=== PATIENT | female | born 2005 | race Caucasian/White ===

== ENCOUNTER 2024-03-17 06:15 | Day surgery (SDC) | payer OTHER, SELFPAY ==
[2024-03-01 12:47] VITALS: BMI 19.0
[2024-03-01 15:34] LABS: HCG, Urine Qualitative Screen Negative
[2024-03-01 15:43] LABS: Hematocrit 42.1 % (37.0-47.0); Hemoglobin 14.2 g/dL (12.0-16.0); Mean Corp Hgb Conc. 33.7 g/dL (33.0-37.0); Mean Corpuscular Hgb 29.9 pg (27.0-31.0); Mean Corpuscular Volume 88.6 fL (81.0-99.0); Mean Platelet Volume 10.3 fL (7.4-10.4); Platelet Count 291 10^3/uL (130-400); Red Blood Cell Count 4.75 10^6/uL (4.20-5.40); Red Cell Dist. Width 12.1 % (11.5-14.5); White Blood Cell Count 6.1 10^3/uL (4.8-10.8)
[2024-03-17] VITALS (7 sets, daily range): BP systolic 100–124; BP diastolic 52–75; BMI 19.0
[2024-03-17] MEDS: NORMOSOL-R/PLASMALYTE-A 1000 IV (06:47)
[2024-03-17] MEDS: TYLENOL 1000 MG PO (06:50)
[2024-03-17] MEDS: TRANSDERM-SCOP 1 PATCH TRANSDERM (07:42)
== END 2024-03-17 11:00 | disposition home or self-care (01) ==
LOC: SDS 06:15
PROVIDERS: ATTENDING PHYSICIAN Otolaryngology; FAMILY PHYSICIAN Physician Assistant Medical
DX: J34.2 Deviated nasal septum (principal); J34.3 Hypertrophy of nasal turbinates
CPT/HCPCS: 30520; 30140; 36415; 81025; 85027

== ENCOUNTER 2024-06-08 22:47 | Emergency (ER) | payer OTHER, SELFPAY ==
[2024-06-08 22:49] VITALS: BP 120/78
--- NOTE | 2024-06-08 23:08 | ED.GENMED ---
History of Present Illness
General
Chief Complaint: Eye Problems
Source: patient
Exam Limitations: none
Time Seen by Provider: 06/08/24 23:01
History of Present Illness
History of Present Illness:
Small splash of bleach cleaning bleach to the right eye. Occurred around 10 PM. Mild flushing at home. Complaining of irritation. No visual issues.
Review of Systems
Review of Systems
All Other Systems: Not applicable
Phy Exam
Physical Exam
Physical Exam:
General: Nontoxic appearing in no distress
Skin: Warm and dry, no rash
Neuro: Alert, nontoxic, grossly nonfocal
Psychiatric: Good eye contact and appropriate
Eye: Mild conjunctival injection of the right eye. Cornea clear. Discharge. No drainage. Facial area within normal limits
Course
Vital Signs
Initial and Last Documented VS:
Initial Vital Signs
Temp Pulse Resp BP Pulse Ox
98 F 76 16 120/78 100
06/08/24 22:49 06/08/24 22:49 06/08/24 22:49 06/08/24 22:49 06/08/24 22:49
Last Documented Vital Signs
Temp Pulse Resp BP Pulse Ox
98 F 76 16 120/78 100
06/08/24 22:49 06/08/24 22:49 06/08/24 22:49 06/08/24 22:49 06/08/24 22:49
*Critical Care Note
Total Time (30-74mins, 75-104mins- exclusive of procedures): Not Applicable
Update Note
Update Note:
Fluorescein negative. Tetracaine flushed well. Chemical conjunctivitis. Symptomatic treatment and follow-up as needed
ED Attending Note
-
Portions of this chart may have been created with voice recognition software.� Occasional wrong word or��sound alike� substitutions may have occurred due to the inherent limitations of voice recognition software.
Discharge Plan
Departure
Patient Disposition: Home (Routine Discharge)
Date of Disposition: 06/08/24
Time of Disposition: 23:27
Patient with high blood pressure during this ER visit?: No
Discharge Problem:
Bleach exposure right eye
Instructions: Chemical Eye Injury ED
Prescriptions:
No Action
No Current Medications
0
Referrals:
Julian Summers MD [Family Provider] -
Peyton Foster MD [Active] - Follow up in 2-3 days
Activity Restrictions/Additional Instructions:
The eye irritation should resolve over the next 24 to 36 hours
Get rechecked or call ophthalmology with any persistent irritation, any visual changes, hazy vision, unusual drainage, eye pain etc.
Interventions
Interventions:
*Risk Screen - Suicide Last Done: 06/08/24 22:49
*Neglect/Abuse Screening Last Done: 06/08/24 22:49
Discharge Date and Time
Print Language: BARBADIAN
== END 2024-06-08 23:36 | disposition home or self-care (01) ==
LOC: EMR 22:47
PROVIDERS: EMERGENCY PHYSICIAN Emergency Medicine; FAMILY PHYSICIAN Family Medicine
DX: T54.91XA Toxic effect of unspecified corrosive substance, accidental (unintentional), initial encounter (principal); H57.89 Other specified disorders of eye and adnexa
CPT/HCPCS: 99282